=== PATIENT | female | born 1995 | race Caucasian/White ===

== ENCOUNTER 2023-12-28 12:01 | Inpatient (IN) | payer OTHER ==
[~2023-12-28] VITALS: Ht 149.9 cm; Wt 106.6 kg
[2023-12-28 13:00] VITALS: BP 122/75; PULSE 97; RESP 18; TEMP 98.5; O2SAT 98
[2023-12-28] MEDS ORDERED: AMPICILLIN 2,000 MG in NACL 0.9% MINI-BAG PLUS 100 ML IV SCH (13:30)
[2023-12-28] MEDS: LACTATED RINGERS 1,000 ML IV SCH (13:35)
[2023-12-28] MEDS: AMPICILLIN 2,000 MG VIAL ONE (13:49)
[2023-12-28 13:58] LABS: BASOPHILS % (AUTO) 0.3 % (0.0-2.0); EOSINOPHILS # (AUTO) 0.1 K/uL (0-0.4); EOSINOPHILS % (AUTO) 1.1 % (0.0-4.0); HEMOGLOBIN 11.4 g/dL (12.0-16.0); LYMPHOCYTES # (AUTO) 1.1 K/uL (2.5-16.5); LYMPHOCYTES % (AUTO) 9.4 % (20.5-51.1); MEAN CORPUSCULAR HEMOGLOBIN 27 pg (27-31); MEAN CORPUSCULAR HGB CONC 34 g/dL (33-37); MEAN CORPUSCULAR VOLUME 79.5 fL (80-94); MONOCYTES # (AUTO) 0.9 K/uL (0.8-1.0); MONOCYTES % (AUTO) 7.5 % (1.7-9.3); NEUTROPHILS # (AUTO) 9.5 K/uL (1.8-7.7); NEUTROPHILS % (AUTO) 81.7 % (42.2-75.2); PLATELET COUNT (AUTO) 222 K/uL (140-450); RED BLOOD CELL COUNT(AUTO) 4.28 MIL/uL (4.20-5.40); RED CELL DISTRIBUTION WIDTH 14.5 % (11.6-13.7); WHITE BLOOD COUNT (AUTO) 11.7 K/uL (4.8-10.8)
[2023-12-28 14:18] LABS: APPEARANCE,URINE CLEAR (CLEAR); BILIRUBIN,URINE NEGATIVE (NEGATIVE); BLOOD, URINE NEGATIVE (NEGATIVE); COLOR,URINE YELLOW (YELLOW); LEUKOCYTE ESTERASE ,URINE NEGATIVE (NEGATIVE); NITRITE, URINE NEGATIVE (NEGATIVE); PH,URINE 6.5 (5.0-9.0); PROTEIN,URINE NEGATIVE (NEGATIVE); UGLUCOSE NEGATIVE (NEGATIVE); UROBILINOGEN,URINE 0.2 EU/dL (0.2 - 1)
[2023-12-28 14:22] LABS: INR 0.87 (0.8-1.2); PARTIAL THROMBOPLASTIN TIME 28.1 secs (22-35.6); PROTHROMBIN TIME 9.2 secs (10.8-13.4)
[2023-12-28 14:24] LABS: ALBUMIN 2.4 g/dL (3.4-5.0); ANION GAP 15.9 (8-16); CALCIUM 9.1 mg/dL (8.5-10.1); CARBON DIOXIDE 23.2 mmol/L (21-32); CREATININE 0.6 mg/dL (0.6-1.3); POTASSIUM 4.1 mmol/L (3.5-5.1); TOTAL BILIRUBIN 0.3 mg/dL (0.0-1.0); TOTAL PROTEIN, SERUM 6.7 g/dL (6.4-8.2)
[2023-12-28] MEDS ORDERED: ROPIVACAINE 0.2%/NS PREMIX 200 ML EPI ONE (17:42)
[2023-12-28] MEDS: AMPICILLIN 1,000 MG in NACL 0.9% MINI-BAG PLUS 50 ML IV SCH (17:54)
[2023-12-28] MEDS ORDERED: MEDS-TO-BEDS MC SCH (21:00)
[2023-12-28] MEDS: LABETALOL 100 MG TAB PO SCH (21:40)
[2023-12-28] MEDS: AMPICILLIN 1,000 MG VIAL ONE (22:18)
[2023-12-29] MEDS ORDERED: AMPICILLIN 1,000 MG VIAL ONE ×3 (01:43→09:50)
[2023-12-29] MEDS: AMPICILLIN 1,000 MG in NACL 0.9% MINI-BAG PLUS 50 ML IV SCH (02:04)
[2023-12-29] MEDS: OXYTOCIN/0.9 % SODIUM CHLORIDE 500 ML IV SCH (04:16)
[2023-12-29] MEDS ORDERED: ROPIVACAINE 0.2%/NS PREMIX 200 ML EPI ONE (06:21)
[2023-12-29] MEDS: AMPICILLIN 1,000 MG VIAL ONE (06:32)
[2023-12-29] MEDS ORDERED: TRA200 PO (10:25)
[2023-12-29] MEDS: MISOPROSTOL 200 MCG TAB ONE (11:40)
[2023-12-29] MEDS ORDERED: OXYTOCIN 10 UNITS/ML VIAL IM PRN (11:45)
[2023-12-29] MEDS ORDERED: BENZOCAINE/MENTHOL 20%-0.5% 60 GM CAN TP PRN (11:45)
[2023-12-29] MEDS ORDERED: oxyCODONE/APAP 5/325 MG 1 TAB TAB PO PRN ×2 (11:45)
[2023-12-29] MEDS ORDERED: TEMAZEPAM 15 MG CAP PO PRN (11:45)
[2023-12-29] MEDS ORDERED: IBUPROFEN 800 MG TAB PO PRN (11:45)
[2023-12-29] MEDS ORDERED: MISOPROSTOL 200 MCG TAB PO SCH (11:55)
[2023-12-29] MEDS ORDERED: hydrALAZINE 20 MG/ML VIAL ONE (12:19)
[2023-12-29 12:27] VITALS: BP 187/93; PULSE 81
[2023-12-29] MEDS: hydrALAZINE 20 MG/ML VIAL IVP ONE (12:27)
[2023-12-29] MEDS: LABETALOL 200 MG TAB ONE (14:45)
[2023-12-29] MEDS: DOCUSATE SOD/SENNA 50/8.6 MG 1 TAB PO SCH (21:00)
[2023-12-29] MEDS: LABETALOL 200 MG TAB PO SCH (21:10)
[2023-12-30 08:18] LABS: HEMATOCRIT 28.6 % (36-48); HEMOGLOBIN 9.6 g/dL (12.0-16.0)
== END 2023-12-31 16:45 | disposition home or self-care (01) | DRG 560 ==
LOC: MLD 12:01 → OBSVTOIN 13:24 → MFCC 12-29 15:00
PROVIDERS: ADMIT Obstetrics & Gynecology; ATTEND Obstetrics & Gynecology
PROC: 10D07Z6 Extraction of Products of Conception, Vacuum, Via Natural or Artificial Opening (ICD-10-PCS; principal; 2023-12-29)
PROC: 0HQ9XZZ Repair Perineum Skin, External Approach (ICD-10-PCS; 2023-12-29)
DX: O16.4 Unspecified maternal hypertension, complicating childbirth (principal); Z37.0 Single live birth; O70.0 First degree perineal laceration during delivery; Z3A.39 39 weeks gestation of pregnancy
CPT/HCPCS: 36415; 59409; 80053; 81003; 85018; 85025; 85610; 85730; 86592; 86886; 86900; 86901; J0290; J0360; J2590; J2795